=== PATIENT | male | born 1950 | race Native Hawaiian/Other Pacific Islander ===

== ENCOUNTER 2021-01-22 22:15 | Emergency (ER) | payer OTHER ==
[2021-01-22 23:04] LABS: PLATELET COUNT 296 K/uL (142-355)
[2021-01-22 23:10] LABS: POTASSIUM 3.8 mmol/L (3.6-5.2)
[2021-01-23] MEDS ORDERED: CITA20TA2 PO (01:59)
[2021-01-23] MEDS ORDERED: CRANBERRY450 MG PO (02:00)
[2021-01-23] MEDS ORDERED: STOOL SOFTNR100 M1 PO (02:01)
[2021-01-23] MEDS ORDERED: DONEPEZIL HYDRO10 MG PO (02:02)
[2021-01-23] MEDS ORDERED: FAMO20TA4 PO (02:03)
[2021-01-23] MEDS ORDERED: CLARITIN10 M1 PO (02:04)
[2021-01-23] MEDS ORDERED: MIRTAZAPINE PO (02:05)
[2021-01-23] MEDS ORDERED: MULT VITAMIN (02:07)
[2021-01-23] MEDS ORDERED: MINERAL (02:07)
[2021-01-23] MEDS ORDERED: OLANZAPINE20 MG PO (02:08)
[2021-01-23] MEDS ORDERED: RISP0.5T2 PO (02:09)
[2021-01-23] MEDS ORDERED: CVS SENNA8.6 MG PO (02:10)
[2021-01-23] MEDS ORDERED: TYLENOL325 MG PO (02:14)
== END 2021-01-23 00:26 | disposition other institution (70) ==
LOC: ED 22:15
PROVIDERS: Family Medicine
DX: F32.89 Other specified depressive episodes (principal); F03.91 Unspecified dementia, unspecified severity, with behavioral disturbance; Z11.52 Encounter for screening for COVID-19; Z04.6 Encounter for general psychiatric examination, requested by authority
CPT/HCPCS: 36415; 80053; 85027; 87635; 93005; 99283; U0003